=== PATIENT | female | born 1955 | race Caucasian/White ===

== ENCOUNTER → 2017-01-24 | Outpatient (CLI) | payer BC, OTHER ==
--- NOTE | 2017-01-24 15:03 | REP ---
BILATERAL MAMMOGRAM: Bilateral mammography is performed in the MLO and CC projections. Comparison is made with multiple prior exams, most recently 01/23/2016. There is a new 7 mm nodule in the outer left breast. No other new mass or clustered microcalcifications are seen. IMPRESSION: ACR 0 incomplete. 7 mm nodule seen in the lateral left breast. Recommend spot compression views and ultrasound to further evaluate. BI-RADS/ACR category 0 mammogram, incomplete. Additional imaging and/or prior images are needed before a final assessment can be assigned. This mammogram was interpreted with the aid of an FDA-approved computer-aided detection system. A. Negative x-ray reports should not delay biopsy if a dominant or clinically suspicious mass is present. B. Four to eight percent of cancers are not identified by x-ray. C. Adenosis and dense breasts may obscure an underlying neoplasm. The patient states she/he had a clinical breast exam in January 2017. The patient letter being requested is M0.
== END ==
LOC: M WHC 13:19
PROVIDERS: ATTEND Obstetrics & Gynecology
DX: R92.2 Inconclusive mammogram (principal)

== ENCOUNTER → 2017-02-08 | Outpatient (CLI) | payer BC, OTHER ==
--- NOTE | 2017-02-08 13:29 | REP ---
DIGITAL DIAGNOSTIC UNILATERAL LEFT BREAST MAMMOGRAPHY WITH CAD AND FOCUSED LEFT BREAST SONOGRAPHY: HISTORY: Screening mammography from January 24, 2017 was BIRADS category 0 because of a 7 mm nodular density in the lateral aspect of the left breast. Diagnostic imaging was recommended. MAMMOGRAPHIC FINDINGS: Magnified focal spot compression CC, true ML, and MLO views of the left breast confirm the presence of a well-circumscribed, oval-shaped 7 mm nodular soft tissue density in the left inferolateral breast. No other suspicious mammographic findings. SONOGRAPHIC FINDINGS: The left breast was scanned from 3-o'clock to 6-o'clock position. At 3-o'clock position, there is a cystic lesion measuring 0.6 x 0.5 x 0.4 cm located 2.4 cm from the nipple which is felt to account for the mammographic opacity. This has features of a simple cyst. No suspicious sonographic finding is seen. IMPRESSION: BIRADS category 2 benign left breast imaging. Simple cyst seen in the left lateral breast. Repeat bilateral screening mammography recommended. BI-RADS/ACR category 2 mammogram. Benign finding(s). Routine annual screening mammography (for women over age 40). This mammogram was interpreted with the aid of an FDA-approved computer-aided detection system. The patient states she/he had a clinical breast exam in January 2017. The patient letter being requested is M2. Signed by Jerel Galvan MD 02/08/2017 04:40 P
== END ==
LOC: M RAD 11:31
PROVIDERS: ATTEND Nurse Practitioner Family
DX: N60.02 Solitary cyst of left breast (principal)
CPT/HCPCS: 76642; G0206

== ENCOUNTER → 2017-04-15 | Outpatient (REF) | payer OTHER ==
[2017-04-15 11:53] LABS: MEAN CORPUSCULAR HGB CONC 34.2 g/dl (32.0-36.5); MEAN CORPUSCULAR VOLUME 90.8 fl (80.0-96.0); RED CELL DISTRIBUTION WIDTH 12.4 % (11.5-14.5); WHITE BLOOD COUNT 5.5 K/mm3 (4.0-10.0)
[2017-04-15 12:29] LABS: ALBUMIN 3.7 GM/DL (3.2-5.2); ALBUMIN/GLOBULIN RATIO 1.12 (1.00-1.93); ALKALINE PHOSPHATASE 95 U/L (45-117); ALT/SGPT 27 U/L (12-78); ANION GAP 8 MEQ/L (8-16); AST/SGOT 12 U/L (15-37); BILIRUBIN,TOTAL 0.6 MG/DL (0.2-1.0); BLOOD UREA NITROGEN 17 MG/DL (7-18); CALCIUM LEVEL 8.8 MG/DL (8.8-10.2); CARBON DIOXIDE LEVEL 27 MEQ/L (21-32); CHLORIDE LEVEL 109 MEQ/L (98-107); CHOLESTEROL LEVEL 196 MG/DL (<200); CREATININE FOR GFR 0.78 MG/DL (0.55-1.02); GLOMERULAR FILTRATION RATE > 60.0 (>45); GLUCOSE, FASTING 89 MG/DL (80-110); POTASSIUM SERUM 4.4 MEQ/L (3.5-5.1); SODIUM LEVEL 144 MEQ/L (136-145); TRIGLYCERIDES LEVEL 132 MG/DL (<150)
== END ==
LOC: M SFHCCLAY 07:46
PROVIDERS: ATTEND Internal Medicine
DX: Z00.00 Encounter for general adult medical examination without abnormal findings (principal); Z86.010 Personal history of colon polyps; Z85.820 Personal history of malignant melanoma of skin; E78.00 Pure hypercholesterolemia, unspecified

== ENCOUNTER → 2020-01-13 | Outpatient (REF) | payer MEDICARE, OTHER ==
[2020-01-13 11:36] LABS: HEMATOCRIT 48.3 % (36.0-47.0); MEAN CORPUSCULAR HEMOGLOBIN 30.3 pg (27.0-33.0); MEAN CORPUSCULAR HGB CONC 33.1 g/dl (32.0-36.5); MEAN CORPUSCULAR VOLUME 91.5 fl (80.0-96.0); PLATELET COUNT, AUTOMATED 288 10^3/uL (150-450); RED BLOOD COUNT 5.28 10^6/uL (4.00-5.40); WHITE BLOOD COUNT 6.6 10^3/uL (4.0-10.0)
[2020-01-13 11:45] LABS: BLOOD UREA NITROGEN 22 MG/DL (7-18); CALCIUM LEVEL 9.4 MG/DL (8.8-10.2); CARBON DIOXIDE LEVEL 30 MEQ/L (21-32); CHLORIDE LEVEL 105 MEQ/L (98-107); CREATININE FOR GFR 0.93 MG/DL (0.55-1.30); GLOMERULAR FILTRATION RATE > 60.0 (>45); GLUCOSE, FASTING 82 MG/DL (70-100); POTASSIUM SERUM 4.9 MEQ/L (3.5-5.1); SODIUM LEVEL 140 MEQ/L (136-145)
[2020-01-13 11:46] LABS: ALBUMIN 3.9 GM/DL (3.2-5.2); ALT/SGPT 26 U/L (12-78); BILIRUBIN,TOTAL 0.8 MG/DL (0.2-1.0); CHOLESTEROL LEVEL 236 MG/DL (<200); CHOLESTEROL RISK RATIO 5.619 (<5); HDL CHOLESTEROL 42 MG/DL (>40); LDL CHOLESTEROL 171 MG/DL (<100); NON-HDL-C 194 MG/DL; TOTAL PROTEIN 7.6 GM/DL (6.4-8.2); TRIGLYCERIDES LEVEL 115 MG/DL (<150)
== END ==
LOC: M SFHCPLAZ 08:38
PROVIDERS: ATTEND Internal Medicine
DX: K21.9 Gastro-esophageal reflux disease without esophagitis (principal); E78.00 Pure hypercholesterolemia, unspecified; R07.89 Other chest pain; Z86.010 Personal history of colon polyps

== ENCOUNTER → 2020-01-13 | Outpatient (CLI) | payer MEDICARE, BC, OTHER ==
--- NOTE | 2020-01-13 10:51 | REPPI ---
CHEST, TWO VIEWS: Two views of the chest are performed. There are no prior studies for comparison. Nodular opacity in the left mid lung zone measures 5-6 mm in diameter and probably represents a calcified granuloma. No acute infiltrate is seen. The heart does not appear to be significantly enlarged. The mediastinal silhouette is unremarkable. There are mild degenerative changes of the spine. IMPRESSION: No acute pulmonary disease. 5 mm nodular density in the left mid lung zone probably represents a calcified granuloma. Recommend CT of the chest to confirm. Electronically Signed by Srinivas Hernandez MD 01/14/2020 10:33 A
== END ==
LOC: M PLAIMG 08:51
PROVIDERS: ATTEND Internal Medicine
DX: R91.8 Other nonspecific abnormal finding of lung field (principal); R07.89 Other chest pain; K21.9 Gastro-esophageal reflux disease without esophagitis; E78.00 Pure hypercholesterolemia, unspecified; Z86.010 Personal history of colon polyps
CPT/HCPCS: 36415; 71046; 80053; 80061; 84443; 85027; 93005; G0463